=== PATIENT | female | born 1960 | race Caucasian/White ===

== ENCOUNTER 2016-08-07 12:33 | Emergency (ER) | payer SELFPAY ==
[~2016-08-07] VITALS: Ht 152.4 cm; Wt 103.9 kg
[2016-08-07 12:44] VITALS: BP 169/78
--- NOTE | 2016-08-07 13:48 | RAD ---
INDICATION: cough, body aches COMPARISON: None. FINDINGS: 2 views of chest obtained No focal airspace consolidation. Mediastinal contour is mildly prominent. No gross osseous destructive lesion. Degenerative changes spine. IMPRESSION: No focal airspace consolidation or edema.
[2016-08-07 14:00] LABS: OBC FLU VALID
--- NOTE | 2016-08-07 14:18 | PHYS DOC ---
Past Medical History Past Medical History: Diabetes-Type II, High Cholesterol, Hypertension Past Surgical History: No Surgical History Additional Information: nonsmoker Alcohol Use: None Drug Use: None Adult General Chief Complaint Chief Complaint: GENERALIZED BODY ACHES HPI HPI Patient is a 56 year old female who presents with pain in the arms and back starting today. She denies any injury. She has also had sneezing, coughing, and nasal congestion. She denies fever, shortness of breath, sore throat, ear pain, or pain in the legs. She is diabetic with high blood pressure and high cholesterol. She expresses concern that her pain is related to her medications. She has not changed any medications recently. She has not taken any pain medication today. Her PCP is Dr. Cornelia Fuller. Review of Systems Review of Systems Constitutional: Denies fever or chills. [] Eyes: Denies change in visual acuity, redness, or eye pain. [] HENT: Denies ear pain or sore throat. Reports nasal congestion. Respiratory: Denies shortness of breath. Reports cough and sneezing. Cardiovascular: Denies chest pain, palpitations or edema. [] GI: Denies abdominal pain, nausea, vomiting, bloody stools or diarrhea. [] : Denies dysuria, hematuria or urinary frequency. [] Musculoskeletal: Reports bilateral upper extremity pain and back pain. Integument: Denies rash or skin lesions. [] Neurologic: Denies headache, focal weakness or sensory changes. [] Endocrine: Denies polyuria or polydipsia. [] Psych: Denies anxiety or depression. [] All systems reviewed and negative unless otherwise stated in the HPI. Allergies Allergies Allergies Coded Allergies Type Severity Reaction Last Updated Verified No Known Drug Allergies 08/07/16 No Physical Exam Physical Exam Constitutional: Well developed, well nourished, no acute distress, non-toxic appearance. [] HENT: Normocephalic, atraumatic, bilateral external ears normal, oropharynx moist, no oral exudates, nose normal. Bilateral TMs without erythema or bulging. There is no posterior pharyngeal erythema or tonsillar edema. Eyes: PERRLA, EOMI, conjunctiva normal, no discharge. [] Neck: Normal range of motion, no tenderness, supple, no stridor. [] Cardiovascular: Heart rate regular rhythm, no murmur [] Lungs & Thorax: Bilateral breath sounds clear to auscultation without wheezes, rales, or rhonchi. Skin: Warm, dry, no erythema, no rash. [] Back: No midline tenderness, no CVA tenderness. [] Extremities: Diffuse bilateral upper extremity tenderness, no cyanosis, no clubbing, ROM intact, no edema. 2+ radial and ulnar pulses bilaterally. Less than 2 second capillary refill in the fingers bilaterally. Light touch sensation intact in the fingers bilaterally. Equal project inspector strength bilaterally. Neurologic: Alert and oriented X 3, normal motor function, normal sensory function, no focal deficits noted. [] Psychologic: Affect normal, judgement normal, mood normal. [] Current Patient Data Vital Signs Vital Signs Date Time Temp Pulse Resp B/P Pulse Ox O2 Delivery O2 Flow Rate FiO2 08/07/16 12:44 97.7 69 18 97 Room Air 97.7 Lab Values Laboratory Tests Test 08/07/16 13:20 Influenza Type A Antigen Negative (NEGATIVE) Influenza Type B Antigen Negative (NEGATIVE) EKG EKG [] Radiology/Procedures Radiology/Procedures REASON: cough, body aches PROCEDURE: CHEST PA & LATERAL INDICATION: cough, body aches COMPARISON: None. FINDINGS: 2 views of chest obtained No focal airspace consolidation. Mediastinal contour is mildly prominent. No gross osseous destructive lesion. Degenerative changes spine. IMPRESSION: No focal airspace consolidation or edema. Course & Med Decision Making Course & Med Decision Making Pertinent Labs and Imaging studies reviewed. (See chart for details) Patient presents with pain in the arms and back starting today. On exam, there are no abnormal findings. She has full range of motion and is neurovascularly intact. Chest x-ray does not show any acute findings. Influenza test is negative. I discussed the results with the patient. She again expressed concern that her symptoms are related to her medications. I advised that she follow up with her primary care doctor in the next few days. She is encouraged to keep track of her symptoms as well. She may take ibuprofen for pain. Return precautions were discussed. She verbalizes understanding and agrees with plan. Dragon Disclaimer Dragon Disclaimer This electronic medical record was generated, in whole or in part, using a voice recognition dictation system. Departure Departure Impression: Primary Impression: Arthralgia Disposition: HOME, SELF-CARE Condition: STABLE Referrals: CORNELIA FULLER MD (PCP) Patient Instructions: Arthralgia, [id number] Additional Instructions: Your chest x-ray was normal. Your flu swab was negative. You may take Tylenol or ibuprofen at home for pain. Please keep track of your symptoms to tell your primary care doctor. Please follow-up with your primary care doctor in the next 2-3 days, sooner if concerns. Return to emergency department if you have chest pain, fever, difficulty breathing, or other new or concerning symptoms. Problem Qualifiers Primary Impression: Arthralgia Joint pain location: unspecified Qualified Code: M25.50 - Pain in unspecified joint SHARMIN CHAUDHRY Aug 07, 2016 14:18
== END 2016-08-07 14:40 | disposition home or self-care (01) ==
LOC: ER 12:37
DX: M25.50 Pain in unspecified joint (principal); M79.601 Pain in right arm; M79.602 Pain in left arm; R05 Cough; R09.81 Nasal congestion; R06.7 Sneezing; I10 Essential (primary) hypertension; E11.9 Type 2 diabetes mellitus without complications; E78.00 Pure hypercholesterolemia, unspecified
CPT/HCPCS: 71020; 87804; 99285-25

== ENCOUNTER → 2016-11-10 | Outpatient (CLI) | payer OTHER ==
[~2016-11-10] MED LIST: ACET500T68 PO; AMLO10TA2 PO; FERR-26 PO; HYDR25TA9 PO; IOHEXOL 240 MG/ML 50ML VIAL. PO ONE; IOHEXOL 300 MG/ML 75 ML VIAL IV ONE; LOVA20TA2 PO; METF500T4 PO
[2016-11-10 10:38] LABS: GFR 57.6
--- NOTE | 2016-11-10 12:11 | RAD ---
CT of the abdomen and pelvis with contrast, 11/10/2016: History: Abdominal mass on an ultrasound exam Multidetector CT imaging was performed following oral and IV administration of contrast. The liver is unremarkable. No gallbladder abnormality is seen. No pancreatic abnormality is detected. The spleen is of normal size. There is moderate bilateral renal cortical scarring. Several small subcentimeter low-density lesions are present in the kidneys. These are too small to definitively characterize but are probably cysts. The kidneys show no evidence of obstruction. No adrenal abnormality is detected. The abdominal aorta is unremarkable. Several small para-aortic, pericaval and iliac lymph nodes are seen. The largest of these lies in the left para-aortic region and measures 10 mm in short axis dimension. It is considered to be at the upper limits of normal in size. Multiple mesenteric lymph nodes are also seen with the largest of those measuring approximately 10 mm in short axis dimension. There is minimal streaky increased density in the mesenteric fat, more so on the left, compatible with nonspecific scarring or inflammation. The uterus is mildly enlarged. There is a 12.5 cm thin-walled cystic structure present along the anterosuperior aspect of the uterus at the midline. It abuts the left ovary. No mural irregularity or internal soft tissue component is seen. The bowel loops are not dilated. Several small colonic diverticula are noted. No free fluid or free air is evident in the abdomen or pelvis. There is an umbilical hernia containing fat. There is increased density within this fat compatible with inflammation or scarring. No bowel herniation is evident. The hernia sac measures 9 x 6 x 4.4 cm. There are moderate scattered degenerative changes in the spine. There is a mild spondylolisthesis at L4-5 due to facet joint arthropathy. IMPRESSION: 1. Moderate sized umbilical hernia containing only fat. There is increased density within the herniated fat compatible with inflammation or scarring. 2. Large midline abdominal pelvic cyst which cannot be from the left ovary. This is probably an ovarian or paraovarian cyst. A peritoneal inclusion cyst is less likely. 3. Borderline mesenteric and periaortic adenopathy. These nodes may be reactive. CT follow-up is suggested to exclude a neoplastic etiology. 4. Bilateral renal scarring with probable tiny bilateral renal cysts. 5. Minimal colonic diverticulosis. 6. Nonspecific uterine enlargement. PQRS Compliance Statement: One or more of the following individualized dose reduction techniques were utilized for this examination: 1. Automated exposure control 2. Adjustment of the mA and/or kV according to patient size 3. Use of iterative reconstruction technique
== END | disposition home or self-care (01) ==
LOC: CT 10:03
PROVIDERS: ATTEND Family Medicine
DX: R19.00 Intra-abdominal and pelvic swelling, mass and lump, unspecified site (principal); K57.30 Diverticulosis of large intestine without perforation or abscess without bleeding; N85.2 Hypertrophy of uterus
CPT/HCPCS: 36415; 74177; 82565; 84520; Q9966; Q9967

== ENCOUNTER 2017-01-15 01:35 | Emergency (ER) | payer SELFPAY ==
[~2017-01-15] VITALS: Ht 152.4 cm; Wt 102.1 kg
[~2017-01-15 01:35] MED LIST changes: -IOHEXOL 240 MG/ML 50ML VIAL. PO ONE; -IOHEXOL 300 MG/ML 75 ML VIAL IV ONE
[2017-01-15 01:44] VITALS: BP 163/99
--- NOTE | 2017-01-15 01:56 | PHYS DOC ---
Past Medical History Past Medical History: Diabetes-Type II, High Cholesterol, Hypertension Past Surgical History: No Surgical History Alcohol Use: None Drug Use: None Adult General Chief Complaint Chief Complaint: ALLERGIC REACTION HPI HPI Patient is a 56 year old female who presents with old body itching and burning after taking one Bactrim for UTI. Patient believes she is having an allergic reaction and has had these symptoms before after taking antibiotics. Patient is currently being treated for a questionable UTI per the patient and has taken one Bactrim and shortly after developed whole body tingling and itching with no rash. Patient denies any shortness of breath or tongue swelling. Patient denies any fevers. Patient denies any chest pain. Patient has no other complaints. Patient was believes is allergic reaction Review of Systems Review of Systems GEN: Generalized itching HEENT: Denies blurred vision, sore throat CV: Denies chest pain RESP: Denies shortness of air, cough GI: Denies n/v/d NEURO: Whole body tingling MSK: Denies weakness, joint pain/swelling Allergies Allergies Allergies Coded Allergies Type Severity Reaction Last Updated Verified No Known Drug Allergies 08/07/16 No Physical Exam Physical Exam GEN.: No apparent distress. Alert and oriented. HEENT: Head is normocephalic, atraumatic NECK: Supple. LUNGS: CTAB. HEART: RRR, S1, S2 present. Peripheral pulses intact ABDOMEN: Soft, nontender. Positive bowel sounds. EXTREMITIES: Without any cyanosis. NEUROLOGIC: Normal speech, normal tone PSYCHIATRIC: Normal affect, normal mood. SKIN: No ulcerations Current Patient Data Vital Signs Vital Signs Date Time Temp Pulse Resp B/P (MAP) Pulse Ox O2 Delivery O2 Flow Rate FiO2 01/15/17 01:44 98.4 84 18 163/99 (120) 99 Room Air 98.4 Lab Values Laboratory Tests Test 01/15/17 01:56 White Blood Count 9.0 x10^3/uL (4.0-11.0) Red Blood Count 4.70 x10^6/uL (3.50-5.40) Hemoglobin 13.0 g/dL (12.0-15.5) Hematocrit 38.9 % (36.0-47.0) Mean Corpuscular Volume 83 fL (79-100) Mean Corpuscular Hemoglobin 28 pg (25-35) Mean Corpuscular Hemoglobin Concent 33 g/dL (31-37) Red Cell Distribution Width 14.2 % (11.5-14.5) Platelet Count 256 x10^3/uL (140-400) Neutrophils (%) (Auto) 69 % (31-73) Lymphocytes (%) (Auto) 19 % (24-48) L Monocytes (%) (Auto) 8 % (0-9) Eosinophils (%) (Auto) 3 % (0-3) Basophils (%) (Auto) 1 % (0-3) Neutrophils # (Auto) 6.2 x10^3uL (1.8-7.7) Lymphocytes # (Auto) 1.7 x10^3/uL (1.0-4.8) Monocytes # (Auto) 0.7 x10^3/uL (0.0-1.1) Eosinophils # (Auto) 0.2 x10^3/uL (0.0-0.7) Basophils # (Auto) 0.1 x10^3/uL (0.0-0.2) Sodium Level 140 mmol/L (136-145) Potassium Level 3.9 mmol/L (3.5-5.1) Chloride Level 104 mmol/L (98-107) Carbon Dioxide Level 28 mmol/L (21-32) Anion Gap 8 (6-14) Blood Urea Nitrogen 26 mg/dL (7-20) H Creatinine 1.0 mg/dL (0.6-1.0) Estimated GFR (Cockcroft-Gault) 57.6 BUN/Creatinine Ratio 26 (6-20) H Glucose Level 148 mg/dL (70-99) H Calcium Level 9.2 mg/dL (8.5-10.1) Total Bilirubin 0.3 mg/dL (0.2-1.0) Aspartate Amino Transferase (AST) 14 U/L (15-37) L Alanine Aminotransferase (ALT) 19 U/L (14-59) Alkaline Phosphatase 119 U/L (46-116) H Total Protein 7.7 g/dL (6.4-8.2) Albumin 3.5 g/dL (3.4-5.0) Albumin/Globulin Ratio 0.8 (1.0-1.7) L Laboratory Tests 01/15/17 01:56 Laboratory Tests 01/15/17 01:56 EKG EKG [] Radiology/Procedures Radiology/Procedures [] Course & Med Decision Making Course & Med Decision Making Pertinent Labs and Imaging studies reviewed. (See chart for details) ED course: Patient was seen and examined in the emergency room CBC, CMP were ordered 0223: Updated patient on lab results, on reevaluation patient feels better and she is sitting there reading a magazine in no acute distress MDM: After reviewing the chart, CC/HPI/PMH, physical exam, [lab results], I do not believe the patient is having a life-threatening allergic reaction warranting further workup and/or admission at this time. On reexamination the patient has improved and complains of no chest pain, no shortness of breath, no tongue swelling, no difficulty swallowing. I recommended the patient to stop taking the Bactrim and call her doctor in the morning to be prescribed a new antibiotic since she has quite a few allergies to antibiotics. Additional verbal discharge instructions were provided to the patient and that if symptoms get worse or any new symptoms arise that are worrisome to the patient she is to return to the emergency room immediately [] Dragon Disclaimer Dragon Disclaimer This electronic medical record was generated, in whole or in part, using a voice recognition dictation system. Departure Departure Impression: Primary Impression: Medication reaction Disposition: HOME, SELF-CARE Condition: IMPROVED Referrals: ALENA VIRGEN MD (PCP) Patient Instructions: Drug Allergy Additional Instructions: Please follow up with her family doctor next one to 2 days and stop taking her Bactrim and call her doctor for a different antibiotic WILTON EDMONDS DO Jan 15, 2017 01:56
[2017-01-15 02:04] LABS: BASO # 0.1 x10^3/uL (0.0-0.2); BASO % 1 % (0-3); EOS % 3 % (0-3); HEMATOCRIT 38.9 % (36.0-47.0); LYMPH # 1.7 x10^3/uL (1.0-4.8); LYMPH % 19 % (24-48); MEAN CORPUSCULAR HEMOGLOBIN 28 pg (25-35); MEAN CORPUSCULAR HGB CONC 33 g/dL (31-37); MEAN CORPUSCULAR VOLUME 83 fL (79-100); MONO % 8 % (0-9); NEUT % 69 % (31-73); PLATELET COUNT 256 x10^3/uL (140-400); RED CELL DISTRIBUTION WIDTH 14.2 % (11.5-14.5)
[2017-01-15 02:13] LABS: CALCIUM 9.2 mg/dL (8.5-10.1); GFR 57.6; POTASSIUM 3.9 mmol/L (3.5-5.1)
[2017-01-15 02:19] LABS: ALBUMIN 3.5 g/dL (3.4-5.0); ALBUMIN/GLOBULIN RATIO 0.8 (1.0-1.7); TOTAL BILIRUBIN 0.3 mg/dL (0.2-1.0); TOTAL PROTEIN 7.7 g/dL (6.4-8.2)
== END 2017-01-15 02:35 | disposition home or self-care (01) ==
LOC: ER 01:35
DX: L29.9 Pruritus, unspecified (principal); T37.0X5A Adverse effect of sulfonamides, initial encounter; E11.9 Type 2 diabetes mellitus without complications; I10 Essential (primary) hypertension; E78.00 Pure hypercholesterolemia, unspecified; N39.0 Urinary tract infection, site not specified; Y92.89 Other specified places as the place of occurrence of the external cause
CPT/HCPCS: 36415; 80053; 85027; 99284